=== PATIENT | male | born 1960 | race Caucasian/White ===

== ENCOUNTER 2024-07-10 14:39 | Outpatient (CLI) | payer MEDICARE, MEDICAID, SELFPAY ==
--- NOTE | ~2024-07-10 | MR_ITS ---
EXAMINATION: MR brain/brain stem wo/w con DATE: 07/10/2024 15:24 INDICATION: Cognitive changes TECHNIQUE: Magnetic resonance imaging (MRI) of the brain and brainstem was performed without and with 15 mL Multihance intravenous contrast. Sequences included sagittal and axial T1-weighted SE, axial d iffusion-weighted FS SE, axial T2*-weighted GRE, axial T2-weighted FLAIR, and axial T2-weighted FSE. Postcontrast axial and coronal T1-weighted SE was obtained. Apparent diffusion coefficient (ADC) maps were created. COMPARISON: None. FINDINGS: Old lacunar infarcts at the left lentiform nucleus. There are no areas of restricted diffusion to sug gest acute infarction. No intracranial hemorrhage or abnormal intracranial mass lesion. There are sca ttered areas of nonspecific increased T2-weighted signal intensity in the cerebral white matter, pred ominantly involving the deep and periventricular white matter which is within normal limits for age a nd likely sequela of chronic small vessel ischemic disease.. There are no intraparenchymal signal abn ormalities seen on the other pulse sequences. The ventricles are symmetric and normal in size. There are no abnormal extra-axial fluid collections. Flow voids are seen in the cerebral arteries on the T2 -weighted sequences consistent with their expected patency. Left vertebral artery is dominant. Visual ized orbits and soft tissues are unremarkable. There are no areas of abnormal enhancement on the post contrast images. IMPRESSION: 1. Old lacunar infarct at the left lentiform nucleus. No acute intracranial process. 2. Mild scattered nonspecific white matter T2 hyperintensity which is within normal limits for age an d likely sequela of chronic small vessel ischemic disease. Reviewed, dictated and finalized at location [facility]. L [employer] IMPRESSION: 1. Old lacunar infarct at the left lentiform nucleus. No acute intracranial pro cess. 2. Mild scattered nonspecific white matter T2 hyperintensity which is within no rmal limits for age and likely sequela of chronic small vessel ischemic disease .
== END 2024-07-10 14:40 | disposition home or self-care (01) ==
LOC: MICIMG 14:43
DX: R41.89 Other symptoms and signs involving cognitive functions and awareness (principal); R90.82 White matter disease, unspecified
CPT/HCPCS: 70553; A9577